=== PATIENT | male | born 1955 | race Caucasian/White ===

== ENCOUNTER 2017-01-24 06:49 | Day surgery (SDC) | payer MEDICARE ==
[~2017-01-24 06:49] MED LIST: ABILIFY10 M1 PO; ALPRAZOLAM0.5 M2 PO; ALPRAZOLAM0.5 M3 PO; ATORVASTATIN CA20 M1 PO; BYSTOLIC5 MG PO; CARAFATE1 G PO; GABAPENTIN300 MG PO; LISINOPRIL2.5 M1 PO; LOW DOSE ASPIRI81 M3 PO; MISOPROSTOL200 MCG PO; PROTONIX40 MG PO; SEROQUEL200 M1 PO; SERTRALINE HCL100 M1 PO; SERTRALINE HCL100 M5 PO; TOPROL XL50 M1 PO; TRAZODONE HCL150 M1 PO; TRAZODONE HCL150 MG PO; TYLENOL TA325 MG/TA1 PO; VITAMIN B1 PO; XANAX0.5 M1 PO; ZESTRIL20 M2 PO
[2017-01-24 07:58] LABS: BASO % 0.5 % (0-2); EOS % 4.1 % (0-7); EOSINOPHIL ABSOLUTE COUNT 0.3 tho/cmm (0.0-0.7); HCT-HEMATOCRIT 46.8 % (36.0-53.5); HGB-HEMOGLOBIN 16.7 gm/dl (13.5-17.0); IMMATURE GRANULOCYTES ABSOLUTE 0.02 tho/cmm (0-0.03); IMMATURE GRANULOCYTES PERCENT 0.2 % (0-0.3); LYMPH % 19.8 % (20-45); LYMPH ABSOLUTE COUNT 1.6 tho/cmm (0.8-4.5); MCH (MEAN CORPUSCULAR HGB) 31.8 pg (28.0-32.0); MCHC MEAN CORPUSCULAR HGB CONC 35.7 % (32.0-36.0); MCV (MEAN CELL VOLUME) 89.1 fl (82.0-96.0); MEAN PLATELET VOLUME 9.9 cmc (9.4-12.4); MONO % 6.5 % (0-12); MONOCYTE ABSOLUTE COUNT 0.5 tho/cmm (0.0-1.2); NEUTROPHIL ABSOLUTE COUNT 5.6 tho/cmm (1.6-8.0); NEUTROPHIL-AUTOMATED 5.6 tho/cmm (1.6-8.0); NEUTROPHILS % 68.9 % (40-80); PLATELET COUNT 191 tho/cmm (150-450); RED BLOOD COUNT 5.25 mil/cmm (4.40-5.70); RED CELL DISTRIBUTION WIDTH 15.8 % (12.4-16.4); WHITE BLOOD COUNT 8.1 tho/cmm (4.0-10.0)
[2017-01-24 08:00] LABS: INR 1.1 INR (0.9-1.1); PROTHROMBIN TIME 12.9 SECONDS (9.0-13.6)
== END 2017-01-24 11:40 ==
LOC: SHSB 06:49
PROVIDERS: Radiology Diagnostic Radiology
PROC: B01B1ZZ Fluoroscopy of Spinal Cord using Low Osmolar Contrast (ICD-10-PCS; principal; 2017-01-24)
DX: M50.321 Other cervical disc degeneration at C4-C5 level (principal); M48.06 Spinal stenosis, lumbar region; M54.16 Radiculopathy, lumbar region; F17.210 Nicotine dependence, cigarettes, uncomplicated; Z79.82 Long term (current) use of aspirin; Z79.899 Other long term (current) drug therapy; Z88.5 Allergy status to narcotic agent; Z88.6 Allergy status to analgesic agent; Z90.89 Acquired absence of other organs; Z95.0 Presence of cardiac pacemaker; Z98.890 Other specified postprocedural states
CPT/HCPCS: J7030; Q9967